=== PATIENT | female | born 1985 | race Caucasian/White ===

== ENCOUNTER 2016-11-24 20:33 | Emergency (ER) | payer BC ==
[~2016-11-24] VITALS: Ht 170.2 cm; Wt 79.4 kg
[2016-11-24 20:36] VITALS: BP 119/77; PULSE 77; RESP 16; TEMP 97.8; O2SAT 98
--- NOTE | 2016-11-24 20:40 | NUR ---
Patient to ER bed 7 to gown for evaluation. Side rails up. Report given to AG Can.
--- NOTE | 2016-11-24 20:45 | NUR ---
Pt states that about three hours she had a quick onset of substernal chest pain. No radiatation. 8/10 sharp pain. Pt was resting when it happened. Last oral intake was spaghetti. Skin warm, dry, and normal. Pt states she is SOB. Pain comes in waves. No pain at this time. Lung sounds clear in all quinones. Will continue to monitor. No other injuries or complaints mentioned/noted. No distress noted.
--- NOTE | 2016-11-24 21:15 | NUR ---
# 20 gauge angiocath placed to L AC. Use of asceptic technique. Opsite placed over site. Blood return noted. Blood for lab drawn from site. Flushed with 10 cc of normal saline. No evidence of infiltration noted. Patient tolerated well.
--- NOTE | 2016-11-24 22:00 | NUR ---
ER at bedside examining patient.
[2016-11-24] MEDS ORDERED: FAMOTIDINE PF 20 MG/2 ML VIAL IVP ONE (22:15)
[2016-11-24 22:33] LABS: BASOPHILS % (AUTO) 0.4 % (0.0-2.0); EOSINOPHILS # (AUTO) 0.1 K/uL (0.0-0.4); HEMATOCRIT 37.8 % (36-48); HEMOGLOBIN 12.8 g/dL (12.0-16.0); LYMPHOCYTES # (AUTO) 1.6 K/uL (1.0-5.5); MEAN CORPUSCULAR HEMOGLOBIN 31 pg (27-31); MEAN CORPUSCULAR HGB CONC 34 % (32-36); MEAN CORPUSCULAR VOLUME 92 fL (79.0-98.0); MONOCYTES % (AUTO) 14.4 % (1.7-9.3); NEUTROPHILS # (AUTO) 4.2 K/uL (1.8-7.7); NEUTROPHILS % (AUTO) 60.2 % (40.0-70.0); PLATELET COUNT (AUTO) 174 K/uL (130-430); RED BLOOD CELL COUNT(AUTO) 4.13 MIL/uL (4.2-6.2); RED CELL DISTRIBUTION WIDTH 12.4 % (9.0-15.0); WHITE BLOOD COUNT (AUTO) 6.9 K/uL (4.8-10.8)
[2016-11-24 22:46] LABS: CALCIUM 8.9 mg/dL (8.4-11.0); CREATININE 0.75 mg/dL (0.55-1.30); POTASSIUM 3.8 mmol/L (3.5-5.1)
[2016-11-24 22:47] LABS: BILIRUBIN,URINE NEGATIVE (NEGATIVE); CLARITY/URINE CLEAR (CLEAR); COLOR,URINE YELLOW (YELLOW); GLUCOSE,URINE NEGATIVE (NEGATIVE); KETONES,URINE NEGATIVE (NEGATIVE); LEUKOCYTE ESTERASE ,URINE NEGATIVE (NEGATIVE); NITRITE, URINE NEGATIVE (NEGATIVE); PH,URINE 7.5 (5.0-8.0); PROTEIN URINE NEGATIVE (NEGATIVE); UROBILINOGEN,URINE 0.2 (0.2-1.0)
[2016-11-24 22:48] LABS: BLOOD, URINE TRACE (NEGATIVE)
[2016-11-24 22:50] LABS: TOTAL BILIRUBIN 0.3 mg/dL (0.0-1.0); TOTAL PROTEIN, SERUM 7.7 g/dL (6.4-8.3)
[2016-11-24 23:00] LABS: BACTERIA,URINE FEW /HPF (None Seen); MUCUS,URINE None Seen /LPF (None Seen); RBC,URINE 0-3 /HPF (0-3); WBC,URINE 0-3 /HPF (0-3)
[2016-11-25 00:07] VITALS: BP 104/59; PULSE 75; RESP 14; TEMP 98.2; O2SAT 99
--- NOTE | 2016-11-25 00:07 | NUR ---
Patient given written and verbal discharge instructions and verbalizes understanding. ER MD Dr. Mijares discussed with patient the results and treatment provided. Patient in stable condition. ID arm band removed. IV catheter removed intact and dressing applied, no active bleeding. Patient educated on pain management and to follow up with PMD. Pain Scale 0/10. Opportunity for questions provided and answered.
== END 2016-11-25 00:07 | disposition home or self-care (01) ==
LOC: SED 20:33
DX: R07.9 Chest pain, unspecified (principal)
CPT/HCPCS: 36415; 71010; 80053; 81000; 81025; 83880; 84484; 85025; 85379; 93005; 96374; 99285; J3490

== ENCOUNTER 2020-08-05 11:02 | Emergency (ER) | payer MEDICAID, BC ==
[~2020-08-05] VITALS: Ht 170.2 cm; Wt 95.3 kg
[2020-08-05 11:07] VITALS: BP_SYST 117
--- NOTE | 2020-08-05 11:11 | NUR ---
Patient to ER bed 07 to gown for evaluation. Side rails up.
--- NOTE | 2020-08-05 11:20 | NUR ---
Patient presented to ER C/O Abdominal pain. Patient A&Ox4, ambulatory, afebrile, skin pink & warm, pain 7/10, diarrhea, denies N/V. Patient states she has abdominal pain since last night after dinner. Patients pain continued this morning, she had oatmeal for breakfast then pain got worse.
--- NOTE | 2020-08-05 11:29 | NUR ---
ER Dr. BENAVIDES at bedside examining patient.
--- NOTE | 2020-08-05 11:30 | NUR ---
# 20 gauge angiocath placed to left AC. Use of asceptic technique. Opsite placed over site. Blood return noted. Blood for lab drawn from site. Flushed with 10 cc of normal saline. No evidence of infiltration noted. Patient tolerated well.
[2020-08-05] MEDS ORDERED: NACL 0.9% 1,000 ML IV ONE (11:45)
[2020-08-05 12:10] LABS: CALCIUM 8.6 mg/dL (8.4-11.0); CREATININE 0.83 mg/dL (0.55-1.30); POTASSIUM 4.4 mmol/L (3.5-5.1)
[2020-08-05 12:12] LABS: BASOPHILS % (AUTO) 0.5 % (0.0-2.0); EOSINOPHILS # (AUTO) 0.1 K/uL (0.0-0.4); EOSINOPHILS % (AUTO) 0.9 % (0.0-4.0); HEMATOCRIT 40.6 % (36-48); HEMOGLOBIN 13.7 g/dL (12.0-16.0); LYMPHOCYTES # (AUTO) 1.4 K/uL (1.0-5.5); LYMPHOCYTES % (AUTO) 23.1 % (20.5-51.5); MEAN CORPUSCULAR HEMOGLOBIN 31 pg (27-31); MEAN CORPUSCULAR HGB CONC 34 % (32-36); MEAN CORPUSCULAR VOLUME 91 fL (79.0-98.0); MONOCYTES # (AUTO) 0.5 K/uL (0.0-1.0); MONOCYTES % (AUTO) 8.3 % (1.7-9.3); NEUTROPHILS # (AUTO) 4.1 K/uL (1.8-7.7); NEUTROPHILS % (AUTO) 67.2 % (40.0-70.0); PLATELET COUNT (AUTO) 221 K/uL (130-430); RED BLOOD CELL COUNT(AUTO) 4.44 MIL/uL (4.2-6.2); RED CELL DISTRIBUTION WIDTH 13.5 % (9.0-15.0); WHITE BLOOD COUNT (AUTO) 6.1 K/uL (4.8-10.8)
[2020-08-05 12:16] LABS: TOTAL BILIRUBIN 0.6 mg/dL (0.0-1.0)
[2020-08-05] MEDS ORDERED: IOHEXOL 350 mgI/mL, 150 ML INFUS..BTL IV ONE (13:16)
[2020-08-05 13:45] VITALS: BP_SYST 121
--- NOTE | 2020-08-05 13:45 | NUR ---
Patient given written and verbal discharge instructions and verbalizes understanding. ER MD discussed with patient the results and treatment provided. Patient in stable condition. ID arm band removed. IV catheter removed intact and dressing applied, no active bleeding. Rx of TRAMADOL & MOTRIN given. Patient educated on pain management and to follow up with PMD. Pain Scale 3/10. Opportunity for questions provided and answered. Medication side effect fact sheet provided.
== END 2020-08-05 13:45 | disposition home or self-care (01) ==
LOC: SED 11:02
DX: N83.209 Unspecified ovarian cyst, unspecified side (principal); R10.31 Right lower quadrant pain
CPT/HCPCS: 36415; 74177; 80053; 81002; 81025; 85025; 96360; 99285; J7030; Q9967